=== PATIENT | male | born 1965 | race Caucasian/White ===

== ENCOUNTER 2017-06-27 18:06 | Emergency (ER) | payer OTHER ==
[~2017-06-27] VITALS: Ht 193 cm; Wt 140.7 kg
[2017-06-27 18:59] LABS: HEMATOCRIT 45.9 % (38.0-50.0); HEMOGLOBIN 16.1 G/DL (12.5-16.6); MCH 30.6 PG (29.0-34.0); MCHC 35.1 G/DL (30.0-36.0); MCV 87.3 FL (86-99); PLATELET COUNT 205 K/uL (156-360); RBC DIS.WIDTH-SD 38.6 % (39-53); RED BLOOD COUNT 5.26 M/uL (4.00-5.50); WHITE BLOOD COUNT 12.9 K/uL (4.1-10.2)
[2017-06-27 19:15] LABS: CHLORIDE 102 mEq/L (99-109); POTASSIUM 3.7 mEq/L (3.7-5.4); SODIUM 138 mEq/L (136-147)
[2017-06-27 19:16] LABS: GLUCOSE 116 mg/dL (70-99)
[2017-06-27 19:20] LABS: CREATININE 0.9 mg/dL (0.6-1.3)
[2017-06-27 19:21] LABS: UREA NITROGEN (BUN) 20 mg/dL (9-23)
[2017-06-27 19:39] LABS: GFR ESTIMATE (CALCULATED) > 59 mL/min/ (58.99-99999)
[2017-06-27] MEDS ORDERED: PERCOCET 5/31 TABLET PO (23:48)
[2017-06-28 00:38] VITALS: BP 123/73
== END 2017-06-28 00:15 | disposition home or self-care (01) ==
LOC: EME 18:06
PROVIDERS: Family Medicine
DX: S52.202A Unspecified fracture of shaft of left ulna, initial encounter for closed fracture (principal); S52.122A Displaced fracture of head of left radius, initial encounter for closed fracture; V44.5XXA Car driver injured in collision with heavy transport vehicle or bus in traffic accident, initial encounter; Y92.410 Unspecified street and highway as the place of occurrence of the external cause; K21.9 Gastro-esophageal reflux disease without esophagitis
CPT/HCPCS: 71045; 73030; 73070; 73090; 80048; 85027; 99281; 99285; J2270; J7040